=== PATIENT | male | born 1980 | race African-American/Black ===

== ENCOUNTER 2020-08-24 17:06 | Emergency (ER) | payer OTHER ==
[~2020-08-24] VITALS: Ht 182.9 cm; Wt 111.1 kg
[2020-08-24] MEDS ORDERED: VISTARIL50 MG PO (20:20)
== END 2020-08-24 21:08 | disposition home or self-care (01) ==
LOC: ER 17:06
DX: R07.89 Other chest pain (principal); F41.0 Panic disorder [episodic paroxysmal anxiety]; Z03.818 Encounter for observation for suspected exposure to other biological agents ruled out